=== PATIENT | male | born 1960 | race Hispanic/Latino ===

== ENCOUNTER 2016-06-15 10:07 | Outpatient (CLI) | payer BC ==
[2016-06-15] MEDS ORDERED: XYLOCAINE TOPICAL 2% TP ONE ×2 (10:52→14:48)
== END 2016-06-15 10:08 | disposition home or self-care (01) ==
LOC: WOUND 10:07
PROVIDERS: ATTEND Podiatrist
DX: I89.0 Lymphedema, not elsewhere classified (principal); L97.912 Non-pressure chronic ulcer of unspecified part of right lower leg with fat layer exposed; E66.9 Obesity, unspecified; L03.115 Cellulitis of right lower limb; M19.90 Unspecified osteoarthritis, unspecified site; I10 Essential (primary) hypertension; E66.01 Morbid (severe) obesity due to excess calories; E78.5 Hyperlipidemia, unspecified; Z87.891 Personal history of nicotine dependence

== ENCOUNTER 2016-06-18 11:27 | Outpatient (CLI) | payer BC | END 2016-06-18 11:28 | disposition home or self-care (01) | LOC: WOUND 11:27 | PROVIDERS: ATTEND Podiatrist | DX: T81.89XD Other complications of procedures, not elsewhere classified, subsequent encounter (principal); L97.912 Non-pressure chronic ulcer of unspecified part of right lower leg with fat layer exposed; E66.9 Obesity, unspecified; I10 Essential (primary) hypertension; I89.0 Lymphedema, not elsewhere classified; E78.5 Hyperlipidemia, unspecified; M19.90 Unspecified osteoarthritis, unspecified site; Z87.891 Personal history of nicotine dependence; Y83.8 Other surgical procedures as the cause of abnormal reaction of the patient, or of later complication, without mention of misadventure at the time of the procedure | CPT/HCPCS: 29581 ==

== ENCOUNTER 2016-06-22 09:09 | Outpatient (CLI) | payer BC ==
[2016-06-22] MEDS ORDERED: XYLOCAINE TOPICAL 2% TP ONE (09:13)
[2016-06-22] MEDS ORDERED: XYLOCAINE TOPICAL 4% TP ONE (13:56)
== END 2016-06-22 09:10 | disposition home or self-care (01) ==
LOC: WOUND 09:09
PROVIDERS: ATTEND Podiatrist
DX: T81.89XD Other complications of procedures, not elsewhere classified, subsequent encounter (principal); S81.801D Unspecified open wound, right lower leg, subsequent encounter; L03.115 Cellulitis of right lower limb; R60.0 Localized edema; E66.9 Obesity, unspecified; I10 Essential (primary) hypertension; I89.0 Lymphedema, not elsewhere classified; E78.2 Mixed hyperlipidemia; Z87.891 Personal history of nicotine dependence; Y83.8 Other surgical procedures as the cause of abnormal reaction of the patient, or of later complication, without mention of misadventure at the time of the procedure
CPT/HCPCS: 29581

== ENCOUNTER 2016-06-25 11:02 | Outpatient (CLI) | payer BC | END 2016-06-25 11:03 | disposition home or self-care (01) | LOC: WOUND 11:02 | PROVIDERS: ATTEND Podiatrist | DX: L97.811 Non-pressure chronic ulcer of other part of right lower leg limited to breakdown of skin (principal); R60.0 Localized edema; E66.9 Obesity, unspecified; L03.115 Cellulitis of right lower limb; M19.90 Unspecified osteoarthritis, unspecified site; I10 Essential (primary) hypertension; I89.0 Lymphedema, not elsewhere classified; E78.2 Mixed hyperlipidemia; Z87.891 Personal history of nicotine dependence | CPT/HCPCS: 29581 ==

== ENCOUNTER 2016-06-29 11:11 | Outpatient (CLI) | payer BC ==
[2016-06-29] MEDS ORDERED: XYLOCAINE TOPICAL 4% TP ONE (12:13)
== END 2016-06-29 11:12 | disposition home or self-care (01) ==
LOC: WOUND 11:11
PROVIDERS: ATTEND Podiatrist
DX: L97.912 Non-pressure chronic ulcer of unspecified part of right lower leg with fat layer exposed (principal); I89.0 Lymphedema, not elsewhere classified; E66.9 Obesity, unspecified; M19.90 Unspecified osteoarthritis, unspecified site; I10 Essential (primary) hypertension; E78.5 Hyperlipidemia, unspecified; Z87.891 Personal history of nicotine dependence

== ENCOUNTER 2016-07-02 11:47 | Outpatient (CLI) | payer BC | END 2016-07-02 11:48 | disposition home or self-care (01) | LOC: WOUND 11:47 | PROVIDERS: ATTEND Podiatrist | DX: T81.89XD Other complications of procedures, not elsewhere classified, subsequent encounter (principal); S91.001D Unspecified open wound, right ankle, subsequent encounter; L97.811 Non-pressure chronic ulcer of other part of right lower leg limited to breakdown of skin; R60.0 Localized edema; E66.9 Obesity, unspecified; L03.115 Cellulitis of right lower limb; M19.90 Unspecified osteoarthritis, unspecified site; I10 Essential (primary) hypertension; I89.0 Lymphedema, not elsewhere classified; E78.2 Mixed hyperlipidemia; Z87.891 Personal history of nicotine dependence; Y83.8 Other surgical procedures as the cause of abnormal reaction of the patient, or of later complication, without mention of misadventure at the time of the procedure | CPT/HCPCS: 29581; G0463; 99213 ==

== ENCOUNTER 2016-07-06 08:58 | Outpatient (CLI) | payer BC ==
[2016-07-06] MEDS ORDERED: XYLOCAINE TOPICAL 2% ONE (09:07)
[2016-07-06] MEDS ORDERED: XYLOCAINE TOPICAL 2% TP ONE (09:08)
== END 2016-07-06 08:59 | disposition home or self-care (01) ==
LOC: WOUND 08:58
PROVIDERS: ATTEND Podiatrist
DX: L97.812 Non-pressure chronic ulcer of other part of right lower leg with fat layer exposed (principal); E66.9 Obesity, unspecified; I10 Essential (primary) hypertension; I89.0 Lymphedema, not elsewhere classified; E78.5 Hyperlipidemia, unspecified; M19.90 Unspecified osteoarthritis, unspecified site; Z87.891 Personal history of nicotine dependence

== ENCOUNTER 2016-07-13 08:43 | Outpatient (CLI) | payer BC ==
[2016-07-13] MEDS ORDERED: XYLOCAINE TOPICAL 2% ONE (09:07)
[2016-07-13] MEDS ORDERED: XYLOCAINE TOPICAL 4% TP ONE (16:00)
[2016-07-13] MEDS ORDERED: XYLOCAINE TOPICAL 2% TP ONE (16:00)
== END 2016-07-13 08:44 | disposition home or self-care (01) ==
LOC: WOUND 08:43
PROVIDERS: ATTEND Podiatrist
DX: L97.912 Non-pressure chronic ulcer of unspecified part of right lower leg with fat layer exposed (principal); E66.9 Obesity, unspecified; I10 Essential (primary) hypertension; I89.0 Lymphedema, not elsewhere classified; E78.5 Hyperlipidemia, unspecified; H53.8 Other visual disturbances; M19.90 Unspecified osteoarthritis, unspecified site; Z87.891 Personal history of nicotine dependence

== ENCOUNTER 2016-07-27 09:04 | Outpatient (CLI) | payer BC ==
[2016-07-27] MEDS ORDERED: XYLOCAINE TOPICAL 2% ONE (09:10)
[2016-07-27] MEDS ORDERED: XYLOCAINE TOPICAL 2% TP ONE (09:20)
== END 2016-07-27 09:05 | disposition home or self-care (01) ==
LOC: WOUND 09:04
PROVIDERS: ATTEND Podiatrist
DX: I87.311 Chronic venous hypertension (idiopathic) with ulcer of right lower extremity (principal); L97.912 Non-pressure chronic ulcer of unspecified part of right lower leg with fat layer exposed; E66.9 Obesity, unspecified; M19.90 Unspecified osteoarthritis, unspecified site; I89.0 Lymphedema, not elsewhere classified; E78.5 Hyperlipidemia, unspecified; H53.8 Other visual disturbances; Z87.891 Personal history of nicotine dependence

== ENCOUNTER 2016-08-10 09:33 | Outpatient (CLI) | payer BC ==
[2016-08-10] MEDS ORDERED: XYLOCAINE TOPICAL 2% ONE (09:56)
[2016-08-10] MEDS ORDERED: XYLOCAINE TOPICAL 2% TP ONE (14:47)
== END 2016-08-10 09:34 | disposition home or self-care (01) ==
LOC: WOUND 09:33
PROVIDERS: ATTEND Podiatrist
DX: I87.311 Chronic venous hypertension (idiopathic) with ulcer of right lower extremity (principal); L97.812 Non-pressure chronic ulcer of other part of right lower leg with fat layer exposed; R60.9 Edema, unspecified; E66.01 Morbid (severe) obesity due to excess calories; M19.90 Unspecified osteoarthritis, unspecified site; I10 Essential (primary) hypertension; I89.0 Lymphedema, not elsewhere classified; E78.5 Hyperlipidemia, unspecified; Z87.891 Personal history of nicotine dependence

== ENCOUNTER 2016-08-24 09:05 | Outpatient (CLI) | payer BC ==
[2016-08-24] MEDS ORDERED: XYLOCAINE TOPICAL 2% TP ONE ×2 (10:00→13:08)
== END 2016-08-24 09:06 | disposition home or self-care (01) ==
LOC: WOUND 09:05
PROVIDERS: ATTEND Podiatrist
DX: I87.311 Chronic venous hypertension (idiopathic) with ulcer of right lower extremity (principal); L97.312 Non-pressure chronic ulcer of right ankle with fat layer exposed; E66.01 Morbid (severe) obesity due to excess calories; M19.90 Unspecified osteoarthritis, unspecified site; I89.0 Lymphedema, not elsewhere classified; E78.5 Hyperlipidemia, unspecified; Z87.891 Personal history of nicotine dependence

== ENCOUNTER 2016-10-08 12:16 | Outpatient (CLI) | payer BC, MEDICAID | END 2016-10-08 12:17 | disposition home or self-care (01) | LOC: WOUND 12:16 | PROVIDERS: ATTEND Podiatrist | DX: I87.311 Chronic venous hypertension (idiopathic) with ulcer of right lower extremity (principal); L97.812 Non-pressure chronic ulcer of other part of right lower leg with fat layer exposed; E66.9 Obesity, unspecified; M19.90 Unspecified osteoarthritis, unspecified site; I10 Essential (primary) hypertension; I89.0 Lymphedema, not elsewhere classified; E78.5 Hyperlipidemia, unspecified; H53.8 Other visual disturbances; Z68.44 Body mass index [BMI] 60.0-69.9, adult; Z87.891 Personal history of nicotine dependence | CPT/HCPCS: 99214; G0463 ==

== ENCOUNTER 2016-12-13 10:37 | Inpatient (IN) | payer MEDICAID ==
[2016-12-13 11:33] LABS: Hematocrit 37.9 % (35.5-45.6); Hemoglobin 12.5 gm/dl (11.8-15.2); Mean Corpuscular HGB Conc 33 % (32-34); Mean Corpuscular Hemoglobin 30 pg (28-32); Mean Corpuscular Volume 90 fl (84-94); Platelet Count 227 K/mm3 (140-440); Red Blood Count 4.21 M/mm3 (3.65-5.03); Red Cell Distribution Width 14.8 % (13.2-15.2)
[2016-12-13 11:38] LABS: White Blood Count 23.6 K/mm3 (4.5-11.0)
--- NOTE | 2016-12-13 11:52 | Emergency Department Report ---
Chief Complaint: Dyspnea/Respdistress Stated Complaint: CHEST PAIN/SOB Time Seen by Provider: 12/13/16 11:49 - HPI History of Present Illness: pt c/o being thirst all the time, productive cough, and chest pain with coughing. 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 Due to findings the following was ordered: ED Medical Decision Making - Lab Data Result diagrams: 12/13/16 11:14 ED Disposition for MSE Condition: Stable
[2016-12-13 12:21] LABS: Basophils % (Manual) 0 % (0.0-1.8); Blastocytes % (Manual) 0 %; Diff Status Complete; Eosinophils % (Manual) 0 % (0.0-4.3); Platelet Estimate Consistent w Auto; RBC Morphology Normal
[2016-12-13 12:30] LABS: Anion Gap 24 mmol/L; BUN/Creatinine Ratio 14.54; Blood Urea Nitrogen 16 mg/dL (9-20); Calcium 8.7 mg/dL (8.4-10.2); Carbon Dioxide 19 mmol/L (22-30); Chloride 94.7 mmol/L (98-107); Glucose 104 mg/dL (75-100); Potassium 3.6 mmol/L (3.6-5.0); Sodium 134 mmol/L (137-145)
--- NOTE | 2016-12-13 12:33 | XRay Report ---
CHEST 2 VIEWS INDICATION: Shortness of breath. COMPARISON: 05/02/2016 FINDINGS: PA and lateral chest radiographs demonstrate new 7-8 cm left lower lung pneumonia, partly obscuring the left heart border. Clear remainder lungs. Normal cardiomediastinal silhouette. No large pleural effusions or CHF. Mild bony degenerative changes. CONCLUSION: New left lower lung pneumonia, as described. Followup to complete resolution after adequate conservative treatment. Thank you for the opportunity to participate in this patient's care.
[2016-12-13] MEDS ORDERED: DUONEB *Not for PRN Use IH ONE ×2 (18:23→19:28)
[2016-12-13] MEDS ORDERED: LEVAQUIN 500MG/100ML 500 MG/100 ML BAG IV ONE (18:23)
[2016-12-13] MEDS ORDERED: BABY ASPIRIN PO ONE (18:28)
--- NOTE | 2016-12-13 18:28 | Emergency Department Report ---
HPI - General Chief Complaint: Dyspnea/Respdistress Time Seen by Provider: 12/13/16 17:55 - HPI HPI: The patient is a 56-year-old male with a reported history of congestive heart failure whom presents for evaluation of dyspnea. The patient reports 1 day of progressive dyspnea, constant since onset, severe, exacerbated with exertion or lying flat, improved with sitting up and rest. He also reports associated productive cough of yellow and green sputum also for the past one day, and bilateral lower leg swelling. The patient denies trauma to the chest, hemoptysis, syncope, chest pain, unilateral leg swelling, recent immobilization , history of DVT or PE, recent cancer, history of familial coagulation disorder. ED Past Medical Hx - Past Medical History Previous Medical History?: Yes Hx Hypertension: Yes Hx Congestive Heart Failure: No Hx Diabetes: No Hx Deep Vein Thrombosis: (Unknown) Hx Arthritis: Yes Hx Asthma: No Hx COPD: No Hx HIV: No - Surgical History Past Surgical History?: Yes Hx Pacemaker: No Hx Internal Defibrillator: No Additional Surgical History: R knee surgery 1977, Right leg surgery with wound vac placed 05-29-2016. bladder surgery 1959 - Social History Smoking Status: Former Smoker Substance Use Type: Prescribed - Medications Home Medications: Home Medications Medication Instructions Recorded Confirmed Last Taken Type AtorvaSTATin [Lipitor] 20 mg PO DAILY 05/02/16 05/02/16 Unknown History Valsartan/Hydrochlorothiazide 1 each PO DAILY 05/02/16 05/02/16 Unknown History [Valsartan-Hctz 160-12.5 mg Tab] Amoxicillin/K Clav Tab [Augmentin 1 tab PO Q12HR #14 tab 05/05/16 Unknown Rx 875 mg] ED Review of Systems ROS: Stated complaint: CHEST PAIN/SOB Other details as noted in HPI Constitutional: denies: fever ENT: denies: throat or neck pain Respiratory: reports cough, shortness of breath Cardiovascular: denies: chest pain Endocrine: denies unexplained weight loss or gain Gastrointestinal: denies: abdominal pain, nausea Genitourinary: denies: dysuria Musculoskeletal: denies: leg swelling Skin: denies: rash Neurological: denies: headache Hematological/Lymphatic: denies: easy bleeding or easy bruising Psych: denies sadness or hopelessness Physical Exam - Physical Exam Vital Signs: Vital Signs 12/13/16 10:58 Temperature 99.5 F Pulse Rate 118 H Respiratory 22 Rate Blood Pressure 132/61 O2 Sat by Pulse 95 Oximetry Physical Exam: General: well-nourished, well-developed, patient morbidly obese Head: Normocephalic, atraumatic Eyes: normal sclera ENT: Mucous membranes are pink and moist Neck: trachea midline, neck supple, No neck stiffness, no cervical adenopathy Respiratory: Patient tachypnea, with positive costal retractions, mild respiratory distress, with left lower lobe diminished breath sounds and rhonchi present, wheezing present throughout lung is bilaterally Cardio: S1 and S2 present, no murmurs, rubs, gallops, capillary refill is brisk Abdomen: Normoactive bowel sounds, soft abdomen, no rigidity, no guarding or rebound tenderness Musc: No pitting edema Skin: No rash Neuro: no facial drooping, normal speech Psych: Normal affect ED Course Vital Signs 12/13/16 10:58 Temperature 99.5 F Pulse Rate 118 H Respiratory 22 Rate Blood Pressure 132/61 O2 Sat by Pulse 95 Oximetry ED Medical Decision Making - Lab Data Result diagrams: 12/13/16 11:14 12/13/16 11:14 - Medical Decision Making The patient was seen and examined by myself. The patient is placed on a diagnostic cardiac sonographer and continuous pulse ox. On initial evaluation, the patient was found to be in mild respiratory distress, with elevated temperature 100.9. The patient is given by mouth Tylenol for his fever. Evaluation orders were placed. The patient given a DuoNeb breathing treatment for his dyspnea and wheezing. Lab results revealed leukocytosis, WBC 23, and elevated BNP of 1000. X-ray of the chest dizziness large left lower lobe pneumonia. The patient is administered Zosyn and Levaquin for treatment of pneumonia. As the patient is morbidly obese with tachypnea and persistent tachycardia, the patient may admitted for continued breathing treatments, IV antibiotics, and close cardiopulmonary monitoring. The on-call hospitalist service was contacted. They agreed to admit the patient for further treatment and close monitoring. The ED admit order was placed. The patient was admitted in guarded condition. Critical care attestation.: If time is entered above; I have spent that time in minutes in the direct care of this critically ill patient, excluding procedure time. ED Disposition Clinical Impression: Morbid obesity Left lower lobe pneumonia Qualifiers: Pneumonia type: due to unspecified organism Qualified Code(s): J18.1 - Lobar pneumonia, unspecified organism Sepsis Qualifiers: Sepsis type: sepsis due to unspecified organism Qualified Code(s): A41.9 - Sepsis, unspecified organism Disposition: OP ADMIT IP TO THIS HOSP Is pt being admited?: Yes Does the pt Need Aspirin: Yes Condition: Stable Instructions: Bacterial Pneumonia (ED) Referrals: PRIMARY CARE, [Primary Care Provider] - 3-5 Days Time of Disposition: 18:26
--- NOTE | 2016-12-13 18:32 | Admit Criteria Form ---
Admission Criteria Documentation: PULMONARY DISEASE GRG Clinical Indications for Admission to Inpatient Care ( Place 'X' for any and all applicable criteria): Hospital admission is needed for appropriate care of the patient because of 1 or more of the following(1)(2): [ ]I. Impending or actual respiratory arrest. See Respiratory Failure GRG guideline for severe respiratory disease and long-term mechanical ventilation patients. (3)(4) (5) [ ]II. Severe airflow or ventilation abnormalities (not responsive to emergency and observation care treatment as appropriate) as indicated by 1 or more of the following (6)(7)(8)(9) : [ ]a) PCO2 greater than 42 mm Hg (5.6 kPa) and pH less than 7.35 (new) [ ]b) Documented PCO2 increased more than 5 mm Hg (0.7 kPa) from disease baseline [ ]c) Airflow measurements[A] less than 60% of previous best or predicted (eg, peak expiratory flow rate less than 300 L/min) despite intensive emergent treatment(B) [ ]d) Required respiratory treatments that are performable only in acute inpatient setting [ ]III. Severe respiratory findings (not responsive to emergency and observation care treatment as appropriate) including 1 or more of the following(6)(9)(10): [ ]a) Respiratory distress as indicated by ALL of the following(6)(11): [ ]i) Patient with 1 or more of the following: [ ]1) Dyspnea (difficulty breathing) [ ]2) Tachypnea [ ]3) Abnormal breathing pattern (eg, chest retractions) [ ]4) Other evidence of difficulty breathing [ ]ii) Evidence of respiratory compromise indicated by 1 or more of the following: [ ]1) Hypoxemia [ ]2) Altered mental status [ ]3) Other evidence of respiratory compromise (eg, pulmonary edema on chest x-ray) [ ]b) Stridor [ ]c) Gross hemoptysis(12) [ ]d) Acute cyanosis [ ]IV. Chronic lung disease with severe deterioration (not responsive to emergency and observation care treatment as appropriate) as indicated by 1 or more of the following(7) (13): [ ]a) SaO2 5% below baseline in patient with chronic hypoxemia [ ]b) New requirement for supplemental oxygen to keep SaO2 at baseline or acceptable level [ ]c) Required supplemental oxygen performable only in acute inpatient setting [ ]d) Severe airflow or ventilation abnormalities [ ]e) Previouslymobile patient unable to walk between rooms [ ]f) Inability to eat or sleep due to dyspnea [ ]g) Altered mental status that is severe or persistent [ ]V. Empyema or lung abscess(14)(15) [ ]Vl. Severe atelectasis or lung collapse(16)(17) [ ]Marisa. Tuberculosis requiring inpatient treatment as indicated by 1 or more of the following(18)(19)(20)(21): [ ]a) Diagnosis suspected (eg, symptomatic patient from endemic area or in high-risk population, with abnormal chest imaging) and cannot be ruled out within observation care timeframe (ie, sputum analysis, nucleic acid amplification techniques not rapidly available or not diagnostic) [ ]b) Severely symptomatic patient (eg, Hypoxemia, Hemodynamic instability, Tachypnea) [ ]c) Jkpnm-[id number]-[id number] infection suspected in newly diagnosed patient (eg, treatment regimen may require near-term adjustment) [ ]d) Newly diagnosed patient at high-risk of short-term deterioration (eg, HIV positive, frail, immunocompromised, chronic lung disease) [ ]e) High infectivity suspected (eg, laryngeal disease, cavitary pulmonary lesions, ongoing positivity of sputum) and 1 or more of the following: [ ]i) Unexposed household contacts at high risk (eg, immunocompromised, elderly, infants, chronic lung disease) [ ]ii) Patient unable or unwilling to avoid exposing others (eg, significant psychiatric disease, substance abuse, developmental disability) [ ]f) Complication of tuberculosis requiring inpatient treatment (eg , constrictive pericarditis, tubercular meningitis) [ ]g) Hospitalization mandated by public health authority (eg, patient continually noncompliant with directly observed therapy) [ ]VIII. High-risk pulmonary infection as indicated by 1 or more of the following(22)(23)(24)(25): [ ]a) Temperature less than 95 degrees F (35 degrees C) or greater than 103.1 degrees F (39.5 degrees C) [ ]b) Hemodynamic instability [ ]c) Immunocompromised patient (eg, AIDS, post transplant, neutropenic)(26)(27) [ ]d) History of severe COPD(28) [ ]e) History of severely symptomatic congestive heart failure(29) [ ]f) Other high-risk comorbidity (eg, poorly controlled diabetes, cirrhosis, chronic renal insufficiency) [ ]g) Hypoxemia [ ]h) severe stridor (30) [ ]i) Outpatient, observation, or recovery facility therapy has failed, is not appropriate, or is not feasible. [ ]IX. Complications of tracheostomy that remains after emergency or observation level care(31)(32)(33)(34) [ ]X. Respiratory complications of organ transplant (eg, rejection, respiratory failure, respiratory infection)(27) [ ]XI. Severe pulmonary arterial hypertension or pulmonary vascular disease requiring inpatient care indicated by 1 or more of the following(35)(36)(37)(38): [ ]a) Initiation or change of vasodilators (IV, subcutaneous, or inhaled) or other vasoactive medications needed [ ]b) IV anticoagulation needed (eg, immediate anticoagulation necessary, alternatives not appropriate) [ ]c) Arterial or pulmonary artery catheter monitoring needed due to infusion or other treatment [ ]XII. Cystic fibrosis requiring inpatient care as indicated by 1 or more of the following(39)(40): [ ]a) Severe exacerbation that does not respond to intensified home therapy(41) [ ]b) Severe exacerbation with patient unable to perform prescribed treatments at home [ ]c) Pneumonia [ ]d) Pneumothorax(42) [ ]e) Atelectasis [ ]f) Hemoptysis(43) [ ]XIII. Bronchiectasis requiring inpatient care as indicated by 1 or more of the following(44)(45): [ ]a) Respiratory distress [ ]b) Severe exacerbation and outpatient or observation care therapy has failed, is not appropriate, or is not feasible. [ ]XIV. Sarcoidosis requiring inpatient care as indicated by 1 or more of the following(46)(47)(48): [ ]a) Respiratory distress [ ]b) Cardiac involvement with arrhythmia(49) [ ]c) Outpatient or observation care therapy has failed, is not appropriate, or is not feasible. [ ]XV. Intestitial lung disease requiring inpatient care as indicated by 1 or more of the following(50)(51): [ ]a) Respiratory distress [ ]b) Severe exacerbation and outpatient or observation care therapy has failed, is not appropriate, or is not feasible [ ]XVI. Allergic pneumonitis requiring inpatient care as indicated by 1 or more of the following(52): [ ]a) Respiratory distress [ ]b) Acute eosinophilic pneumonia [ ]c) Churg Rk with cardiac involvement [ ]d) Outpatient or observation care therapy has failed, is not appropriate, or is not feasible [ ]XVIl. Severe right heart failure requiring inpatient care as indicated by 1 or more of the following(35)(53)(54): [ ]a) Respiratory distress [ ]b) Debilitating anasarca that remains after emergency or observation level care (eg, tissue [ ]c) breakdown with severe infection, inability to void due to edema) [C](41)(42)(43)(44) [ ]d) Hemodynamic instability [ ]e) Syncope [ ]f) Angina that requires inpatient care (eg, not treatable in emergency or observation level of care) [ ]g) Increasing organ failure (eg, liver congestion with significant and worsening or new elevation of transaminases) [ ]XVIll. Injury requiring inpatient care (medical) as indicated by 1 or more of the following(59)(60)(61) [ ]a) Significant inhalation injury (eg, smoke inhalation, other toxic inhalation)(62)(63)(64) [ ]b) Airway obstruction that remains or is unstable after emergency or observation level care(65)(66) [ ]c) Severe pain requiring acute inpatient management [ ]d) Lung contusion(67) [ ]e) Flail chest(68) [ ]f) Bronchial tree injury [ ]g) Air or fat emboli [ ]h) Other injury not treatable in emergency or observation level care (eg, hemothorax)(55) [ ]XlX. Pulmonary hemorrhage or significant hemoptysis(12)(43)(69) [ ]XXl. Complications of transplanted lung indicated by 1 or more of the following(70)(71) [ ]a) Acute graft rejection requiring inpatient management (eg, intravenous immunosuppression)(72)(73)(74) [ ]b) Failure of transplant lung as indicated by 1 or more of the following(75)(76): [ ]i) Anastomotic leak [ ]ii) Airway ischemia or necrosis [ ]iii) Airway fistula [ ]iv) Obstructing granulation tissue requiring intervention [ ]v) Bronchial stenosis or stricture requiring intervention [ ]vi) Tracheobronchomalacia requiring intervention [ ]vii) Severe airflow or ventilation abnormalities [ ]viii) Severe respiratory findings [ ]c) Infection requiring inpatient management (eg, Hemodynamic instability, need for intravenous antimicrobial treatment)(77)(78)(79)(80)(81)(82 [ ]d) Other complication of transplanted lung (eg, obliterative bronchiolitis, plastic bronchitis, thrombotic microangiopathy, constrictive pericarditis) requiring inpatient management(83)(84)(85)(86)(87) [ ]XXll. Inpatient palliative care needed.[D](88)(89)(90)(91) [X ]XXlll. Pulmonary Disease condition, symptom, or finding for which emergency and observation care have failed or are not considered appropriate. The original [facility] content created by [employer] has been revised. The portions of the content which have been revised are identified through the use of italic text or in bold, and [facility] has neither reviewed nor approved the modified material. All other unmodified content is copyright [facility]. Please see references footnoted in the original [facility] edition 2017 Admission Criteria Met: Yes
[2016-12-13] MEDS ORDERED: TYLENOL PO ONE (19:34)
[2016-12-13] MEDS ORDERED: NACL 0.9% 250ML 250 ML IV ONE (19:42)
--- NOTE | 2016-12-13 20:05 | History and Physical Report ---
History of Present Illness Date of examination: 12/13/16 Chief complaint: Shortness of breath and pleuritic chest pain History of present illness: 56 year old male with medical history significant for morbid obesity, hypertension, hyperlipidemia presented to the emergency department complaining of left-sided pleuritic chest pain and shortness of breath that started yesterday. Patient said pain is on the left lower anterior chest, sharp, worsened with deep inspiration, with no radiation, no aggravating factor. Patient stated he had which is productive of greenish to reddish sputum that started yesterday associated with fever but no chills. REVIEW OF SYSTEMS: GENERAL: no weight change, no fatigue, no fever HEAD: no head ache EYES: no blurry vision, no acute visual loss EARS: no hearing loss, no discharge, no earache NOSE: no stuffiness, no sneezing, no discharge MOUTH, THROAT AND NECK: no bleeding gums, no sore throat, no swollen neck CARDIAC: no palpitations, no dyspnea on exertion, no orthopnea, no PND, no edema , + chest pain RESPIRATORY: + shortness of breath, + wheeze, + cough, greenish sputum, no hemoptysis, no asthma GI: no decreased appetite, no nausea, no vomiting, no dysphagia, no diarrhea, no constipation, no abdominal pain URINARY: no change in frequency, no urgency, no polyuria, no hematuria, no incontinence MUSCULOSKELETAL: no muscle weakness, no pain, no joint stiffness NEUROLOGIC: no loss of sensation/numbness, no tingling, no tremors, no weakness/ paralysis HEMATOLOGIC: no anemia, no easy bruising SKIN: no rashes ENDOCRINE: no heat/cold intolerance, no polyuria, no polydipsia, no thyroid problems, no diabetes PSYCHIATRIC: no anxiety, no depression, no suicidal ideations Past History Past Medical History: hypertension, hyperlipidemia, other (morbid obesity) Past Surgical History: Other (right knee in the surgery, on the right leg) Social history: full code. denies: smoking, alcohol abuse, prescription drug abuse, IV drug use Family history: no significant family history Medications and Allergies Allergies Allergy/AdvReac Type Severity Reaction Status Date / Time morphine AdvReac Vomiting Verified 02/16/14 04:31 Home Medications Medication Instructions Recorded Confirmed Last Taken Type AtorvaSTATin [Lipitor] 20 mg PO DAILY 12/18/16 12/18/16 Unknown History Valsartan/Hydrochlorothiazide 1 each PO DAILY 05/02/16 05/02/16 Unknown History [Valsartan-Hctz 160-12.5 mg Tab] Amoxicillin/K Clav Tab [Augmentin 1 tab PO Q12HR #14 tab 05/05/16 Unknown Rx 875 mg] Active Meds: Active Medications Albuterol/Ipratropium (Duoneb *Not For Prn Use*) 1 ampul IH QIDRT ANTHONY Atorvastatin Calcium (Lipitor) 20 mg PO DAILY ANTHONY Hydrochlorothiazide (Hctz) 12.5 mg PO QDAY ANTHONY Levofloxacin/Dextrose (Levaquin 750mg/150ml) 750 mg in 150 mls @ 100 mls/hr IV Q24HR ANTHONY PRN Reason: Protocol Piperacillin Sod/Tazobactam Sod (Zosyn/Ns 4.5gm/100ml) 4.5 gm in 100 mls @ 200 mls/hr IV Q8HR ANTHONY PRN Reason: Protocol Valsartan (Diovan) 160 mg PO DAILY ANTHONY Exam - Physical Exam Narrative exam: In mild cardiopulmonary distress. The patient is a morbidly obese. Vital signs as documented. Head exam is unremarkable. No scleral icterus . Neck is without jugular venous distension, thyromegaly, or carotid bruits. Lungs wheezing all over the chest, tachypneic. Cardiac exam reveals regular rate and Rhythm. First and second heart sounds normal. No murmurs, rubs or gallops. Abdominal exam reveals a morbidly obese abdomen umbilical hernia. Extremities are nonedematous and both femoral and pedal pulses are normal. PLANE RUNNER: Alert and oriented 3. No focal weakness. - Constitutional Vitals: Temp Pulse Resp BP Pulse Ox 100.9 F H 109 H 24 123/60 94 12/13/16 19:01 12/13/16 19:01 12/13/16 19:01 12/13/16 19:01 12/13/16 19:03 Results - Labs CBC & Chem 7: 12/13/16 11:14 12/13/16 11:14 Labs: Laboratory Last Values WBC 23.6 K/mm3 (4.5-11.0) H 12/13/16 11:14 RBC 4.21 M/mm3 (3.65-5.03) 12/13/16 11:14 Hgb 12.5 gm/dl (11.8-15.2) 12/13/16 11:14 Hct 37.9 % (35.5-45.6) 12/13/16 11:14 MCV 90 fl (84-94) 12/13/16 11:14 MCH 30 pg (28-32) 12/13/16 11:14 MCHC 33 % (32-34) 12/13/16 11:14 RDW 14.8 % (13.2-15.2) 12/13/16 11:14 Plt Count 227 K/mm3 (140-440) 12/13/16 11:14 Add Manual Diff Complete 12/13/16 11:14 Total Counted 100 12/13/16 11:14 Seg Neuts % (Manual) 95.0 % (40.0-70.0) H 12/13/16 11:14 Band Neutrophils % 1.0 % 12/13/16 11:14 Lymphocytes % (Manual) 0 % (13.4-35.0) L 12/13/16 11:14 Reactive Lymphs % (Man) 1.0 % 12/13/16 11:14 Monocytes % (Manual) 3.0 % (0.0-7.3) 12/13/16 11:14 Eosinophils % (Manual) 0 % (0.0-4.3) 12/13/16 11:14 Basophils % (Manual) 0 % (0.0-1.8) 12/13/16 11:14 Metamyelocytes % 0 % 12/13/16 11:14 Myelocytes % 0 % 12/13/16 11:14 Promyelocytes % 0 % 12/13/16 11:14 Blast Cells % 0 % 12/13/16 11:14 Nucleated RBC % Not Reportable 12/13/16 11:14 Seg Neutrophils # Man 22.4 K/mm3 (1.8-7.7) H 12/13/16 11:14 Band Neutrophils # 0.2 K/mm3 12/13/16 11:14 Lymphocytes # (Manual) 0.0 K/mm3 (1.2-5.4) L 12/13/16 11:14 Abs React Lymphs (Man) 0.2 K/mm3 12/13/16 11:14 Monocytes # (Manual) 0.7 K/mm3 (0.0-0.8) 12/13/16 11:14 Eosinophils # (Manual) 0.0 K/mm3 (0.0-0.4) 12/13/16 11:14 Basophils # (Manual) 0.0 K/mm3 (0.0-0.1) 12/13/16 11:14 Metamyelocytes # 0.0 K/mm3 12/13/16 11:14 Myelocytes # 0.0 K/mm3 12/13/16 11:14 Promyelocytes # 0.0 K/mm3 12/13/16 11:14 Blast Cells # 0.0 K/mm3 12/13/16 11:14 WBC Morphology Not Reportable 12/13/16 11:14 Hypersegmented Neuts Not Reportable 12/13/16 11:14 Hyposegmented Neuts Not Reportable 12/13/16 11:14 Hypogranular Neuts Not Reportable 12/13/16 11:14 Smudge Cells Not Reportable 12/13/16 11:14 Toxic Granulation Not Reportable 12/13/16 11:14 Toxic Vacuolation Not Reportable 12/13/16 11:14 Dohle Bodies Not Reportable 12/13/16 11:14 Pelger-Huet Anomaly Not Reportable 12/13/16 11:14 Suzie Rods Not Reportable 12/13/16 11:14 Platelet Estimate Consistent w auto 12/13/16 11:14 Clumped Platelets Not Reportable 12/13/16 11:14 Plt Clumps, EDTA Not Reportable 12/13/16 11:14 Large Platelets Not Reportable 12/13/16 11:14 Giant Platelets Not Reportable 12/13/16 11:14 Platelet Satelliting Not Reportable 12/13/16 11:14 Plt Morphology Comment Not Reportable 12/13/16 11:14 RBC Morphology Normal 12/13/16 11:14 Dimorphic RBCs Not Reportable 12/13/16 11:14 Polychromasia Not Reportable 12/13/16 11:14 Hypochromasia Not Reportable 12/13/16 11:14 Poikilocytosis Not Reportable 12/13/16 11:14 Anisocytosis Not Reportable 12/13/16 11:14 Microcytosis Not Reportable 12/13/16 11:14 Macrocytosis Not Reportable 12/13/16 11:14 Spherocytes Not Reportable 12/13/16 11:14 Pappenheimer Bodies Not Reportable 12/13/16 11:14 Sickle Cells Not Reportable 12/13/16 11:14 Target Cells Not Reportable 12/13/16 11:14 Tear Drop Cells Not Reportable 12/13/16 11:14 Ovalocytes Not Reportable 12/13/16 11:14 Helmet Cells Not Reportable 12/13/16 11:14 [place] Bodies Not Reportable 12/13/16 11:14 [place] Rings Not Reportable 12/13/16 11:14 Roberto Cells Not Reportable 12/13/16 11:14 Bite Cells Not Reportable 12/13/16 11:14 Crenated Cell Not Reportable 12/13/16 11:14 Elliptocytes Not Reportable 12/13/16 11:14 Acanthocytes (Spur) Not Reportable 12/13/16 11:14 Rouleaux Not Reportable 12/13/16 11:14 Hemoglobin C Crystals Not Reportable 12/13/16 11:14 Schistocytes Not Reportable 12/13/16 11:14 Malaria parasites Not Reportable 12/13/16 11:14 Epifanio Bodies Not Reportable 12/13/16 11:14 Hem Pathologist Commnt No 12/13/16 11:14 Sodium 134 mmol/L (137-145) L 12/13/16 11:14 Potassium 3.6 mmol/L (3.6-5.0) 12/13/16 11:14 Chloride 94.7 mmol/L (98-107) L 12/13/16 11:14 Carbon Dioxide 19 mmol/L (22-30) L 12/13/16 11:14 Anion Gap 24 mmol/L 12/13/16 11:14 BUN 16 mg/dL (9-20) 12/13/16 11:14 Creatinine 1.1 mg/dL (0.8-1.5) 12/13/16 11:14 Estimated GFR > 60 ml/min 12/13/16 11:14 BUN/Creatinine Ratio 14.54 % 12/13/16 11:14 Glucose 104 mg/dL (75-100) H 12/13/16 11:14 Lactic Acid 1.80 mmol/L (0.7-2.0) 12/13/16 12:16 Calcium 8.7 mg/dL (8.4-10.2) 12/13/16 11:14 Troponin T < 0.010 ng/mL (0.00-0.029) 12/13/16 11:14 NT-Pro-B Natriuret Pep 1008 pg/mL (0-900) H 12/13/16 12:16 Assessment and Plan Assessment and plan: Sepsis Left lower lobe pneumonia Sleep apnea Morbid obesity Hypertension Hyperlipidemia - Patient is dictated according to sepsis protocol -Breathing treatment, DuoNeb, oxygen support -Continue appropriate home medications - Continue CPAP DVT prophylaxis - Subcutaneous Heparin Disposition - Telemetry floor Advance Directives: Yes VTE prophylaxis?: Chemical Plan of care discussed with patient/family: Yes
[2016-12-13 21:24] LABS: ISTAT Base Excess -3; ISTAT DEVICE 0; ISTAT HCO3 21.4; ISTAT PCO2 30.7 (35-45); ISTAT PH 7.451 (7.35-7.45); ISTAT PO2 72 (80-105); ISTAT SO2 95; ISTAT TCO2 22
[2016-12-13] MEDS: DUONEB *Not for PRN Use IH SCH (22:41)
[2016-12-13] MEDS ORDERED: LEVAQUIN 750MG/150ML 0 MG/0 ML BAG IV ONE (23:29)
[2016-12-13] MEDS: LOVENOX SUB-Q SCH (23:30)
[2016-12-13] MEDS: ZOSYN/NS 4.5GM/100ML 4.5 GM/100 ML VIAL IV SCH (23:35)
[2016-12-14] MEDS ORDERED: ZOSYN/NS 3.375GM/50ML 3.375 GM/50 ML BAG IV SCH
[2016-12-14] MEDS: ZOSYN/NS 4.5GM/100ML 4.5 GM/100 ML VIAL IV SCH ×3 (06:49→22:30)
[2016-12-14 09:11] LABS: Basophils % (Auto) 0.2 % (0.0-1.8); Eosinophils % (Auto) 0.4 % (0.0-4.3); Hematocrit 33.2 % (35.5-45.6); Hemoglobin 10.9 gm/dl (11.8-15.2); Mean Corpuscular HGB Conc 33 % (32-34); Mean Corpuscular Hemoglobin 30 pg (28-32); Mean Corpuscular Volume 90 fl (84-94); Platelet Count 181 K/mm3 (140-440); Red Cell Distribution Width 14.1 % (13.2-15.2); White Blood Count 15.1 K/mm3 (4.5-11.0)
[2016-12-14 09:27] LABS: BUN/Creatinine Ratio 17.77; Blood Urea Nitrogen 16 mg/dL (9-20); Calcium 8.2 mg/dL (8.4-10.2); Carbon Dioxide 23 mmol/L (22-30); Glucose 127 mg/dL (75-100)
[2016-12-14 09:28] LABS: Anion Gap 17 mmol/L; Chloride 98.9 mmol/L (98-107); Potassium 3.3 mmol/L (3.6-5.0); Sodium 136 mmol/L (137-145)
[2016-12-14] MEDS: DUONEB *Not for PRN Use IH SCH ×4 (10:21→20:31)
[2016-12-14] MEDS: LEVAQUIN 750MG/150ML 750 MG/150 ML BAG IV SCH (10:32)
[2016-12-14] MEDS: DIOVAN PO SCH (10:52)
[2016-12-14] MEDS: HCTZ PO SCH (10:55)
[2016-12-14] MEDS ORDERED: K-DUR PO ONE (17:32)
--- NOTE | 2016-12-14 17:33 | Progress Note ---
Assessment and Plan Assessment and plan: Sepsis - Resolving, WBC is trending down, no fever Left lower lobe pneumonia Sleep apnea Morbid obesity Hypertension Hyperlipidemia Hypokalemia; repleted - Patient is being treated according to sepsis protocol with IV Levaquin and Zosyn -Breathing treatment, DuoNeb, oxygen support -Continue appropriate home medications -Continue CPAP DVT prophylaxis - Subcutaneous Heparin Disposition - Continue inpatient care History Interval history: Patient was seen and evaluated this morning, patient states his breathing is getting better, no fever overnight. She is to have left lower pleuritic chest pain. Hospitalist Physical - Physical exam Narrative exam: Not in cardiopulmonary distress. The patient is a morbidly obese. Vital signs as documented. Head exam is unremarkable. No scleral icterus . Neck is without jugular venous distension, thyromegaly, or carotid bruits. Lungs rales on the left lower chest. Cardiac exam reveals regular rate and Rhythm. First and second heart sounds normal. No murmurs, rubs or gallops. Abdominal exam reveals a morbidly obese abdomen umbilical hernia. Extremities are nonedematous and both femoral and pedal pulses are normal. ORACLE ANALYST: Alert and oriented 3. No focal weakness. - Constitutional Vitals: Temp Pulse Resp BP Pulse Ox 99.4 F 79 20 131/66 94 12/14/16 16:01 12/14/16 16:01 12/14/16 16:01 12/14/16 16:01 12/14/16 16:01 Results - Labs CBC & Chem 7: 12/14/16 08:55 12/14/16 08:55 Labs: Laboratory Last Values WBC 15.1 K/mm3 (4.5-11.0) H 12/14/16 08:55 RBC 3.70 M/mm3 (3.65-5.03) 12/14/16 08:55 Hgb 10.9 gm/dl (11.8-15.2) L 12/14/16 08:55 Hct 33.2 % (35.5-45.6) L 12/14/16 08:55 MCV 90 fl (84-94) 12/14/16 08:55 MCH 30 pg (28-32) 12/14/16 08:55 MCHC 33 % (32-34) 12/14/16 08:55 RDW 14.1 % (13.2-15.2) 12/14/16 08:55 Plt Count 181 K/mm3 (140-440) 12/14/16 08:55 Lymph % (Auto) 5.9 % (13.4-35.0) L 12/14/16 08:55 [facility] % (Auto) 6.3 % (0.0-7.3) 12/14/16 08:55 Eos % (Auto) 0.4 % (0.0-4.3) 12/14/16 08:55 Baso % (Auto) 0.2 % (0.0-1.8) 12/14/16 08:55 Lymph # 0.9 K/mm3 (1.2-5.4) L 12/14/16 08:55 [facility] # 1.0 K/mm3 (0.0-0.8) H 12/14/16 08:55 Eos # 0.1 K/mm3 (0.0-0.4) 12/14/16 08:55 Baso # 0.0 K/mm3 (0.0-0.1) 12/14/16 08:55 Add Manual Diff Complete 12/13/16 11:14 Total Counted 100 12/13/16 11:14 Seg Neutrophils % 87.2 % (40.0-70.0) H 12/14/16 08:55 Seg Neuts % (Manual) 95.0 % (40.0-70.0) H 12/13/16 11:14 Band Neutrophils % 1.0 % 12/13/16 11:14 Lymphocytes % (Manual) 0 % (13.4-35.0) L 12/13/16 11:14 Reactive Lymphs % (Man) 1.0 % 12/13/16 11:14 Monocytes % (Manual) 3.0 % (0.0-7.3) 12/13/16 11:14 Eosinophils % (Manual) 0 % (0.0-4.3) 12/13/16 11:14 Basophils % (Manual) 0 % (0.0-1.8) 12/13/16 11:14 Metamyelocytes % 0 % 12/13/16 11:14 Myelocytes % 0 % 12/13/16 11:14 Promyelocytes % 0 % 12/13/16 11:14 Blast Cells % 0 % 12/13/16 11:14 Nucleated RBC % Not Reportable 12/13/16 11:14 Seg Neutrophils # 13.2 K/mm3 (1.8-7.7) H 12/14/16 08:55 Seg Neutrophils # Man 22.4 K/mm3 (1.8-7.7) H 12/13/16 11:14 Band Neutrophils # 0.2 K/mm3 12/13/16 11:14 Lymphocytes # (Manual) 0.0 K/mm3 (1.2-5.4) L 12/13/16 11:14 Abs React Lymphs (Man) 0.2 K/mm3 12/13/16 11:14 Monocytes # (Manual) 0.7 K/mm3 (0.0-0.8) 12/13/16 11:14 Eosinophils # (Manual) 0.0 K/mm3 (0.0-0.4) 12/13/16 11:14 Basophils # (Manual) 0.0 K/mm3 (0.0-0.1) 12/13/16 11:14 Metamyelocytes # 0.0 K/mm3 12/13/16 11:14 Myelocytes # 0.0 K/mm3 12/13/16 11:14 Promyelocytes # 0.0 K/mm3 12/13/16 11:14 Blast Cells # 0.0 K/mm3 12/13/16 11:14 WBC Morphology Not Reportable 12/13/16 11:14 Hypersegmented Neuts Not Reportable 12/13/16 11:14 Hyposegmented Neuts Not Reportable 12/13/16 11:14 Hypogranular Neuts Not Reportable 12/13/16 11:14 Smudge Cells Not Reportable 12/13/16 11:14 Toxic Granulation Not Reportable 12/13/16 11:14 Toxic Vacuolation Not Reportable 12/13/16 11:14 Dohle Bodies Not Reportable 12/13/16 11:14 Pelger-Huet Anomaly Not Reportable 12/13/16 11:14 Suzie Rods Not Reportable 12/13/16 11:14 Platelet Estimate Consistent w auto 12/13/16 11:14 Clumped Platelets Not Reportable 12/13/16 11:14 Plt Clumps, EDTA Not Reportable 12/13/16 11:14 Large Platelets Not Reportable 12/13/16 11:14 Giant Platelets Not Reportable 12/13/16 11:14 Platelet Satelliting Not Reportable 12/13/16 11:14 Plt Morphology Comment Not Reportable 12/13/16 11:14 RBC Morphology Normal 12/13/16 11:14 Dimorphic RBCs Not Reportable 12/13/16 11:14 Polychromasia Not Reportable 12/13/16 11:14 Hypochromasia Not Reportable 12/13/16 11:14 Poikilocytosis Not Reportable 12/13/16 11:14 Anisocytosis Not Reportable 12/13/16 11:14 Microcytosis Not Reportable 12/13/16 11:14 Macrocytosis Not Reportable 12/13/16 11:14 Spherocytes Not Reportable 12/13/16 11:14 Pappenheimer Bodies Not Reportable 12/13/16 11:14 Sickle Cells Not Reportable 12/13/16 11:14 Target Cells Not Reportable 12/13/16 11:14 Tear Drop Cells Not Reportable 12/13/16 11:14 Ovalocytes Not Reportable 12/13/16 11:14 Helmet Cells Not Reportable 12/13/16 11:14 Gatica[place] Bodies Not Reportable 12/13/16 11:14 [place] Rings Not Reportable 12/13/16 11:14 Roberto Cells Not Reportable 12/13/16 11:14 Bite Cells Not Reportable 12/13/16 11:14 Crenated Cell Not Reportable 12/13/16 11:14 Elliptocytes Not Reportable 12/13/16 11:14 Acanthocytes (Spur) Not Reportable 12/13/16 11:14 Rouleaux Not Reportable 12/13/16 11:14 Hemoglobin C Crystals Not Reportable 12/13/16 11:14 Schistocytes Not Reportable 12/13/16 11:14 Malaria parasites Not Reportable 12/13/16 11:14 Epifanio Bodies Not Reportable 12/13/16 11:14 Hem Pathologist Commnt No 12/13/16 11:14 POC ABG pH 7.451 (7.35-7.45) H 12/13/16 21:15 POC ABG pCO2 30.7 (35-45) L 12/13/16 21:15 POC ABG pO2 72 (80-105) L 12/13/16 21:15 POC ABG HCO3 21.4 12/13/16 21:15 POC ABG Total CO2 22 12/13/16 21:15 POC ABG O2 Sat 95 12/13/16 21:15 POC ABG Base Excess -3 12/13/16 21:15 FiO2 21 % 12/13/16 21:15 Sodium 136 mmol/L (137-145) L 12/14/16 08:55 Potassium 3.3 mmol/L (3.6-5.0) L 12/14/16 08:55 Chloride 98.9 mmol/L (98-107) 12/14/16 08:55 Carbon Dioxide 23 mmol/L (22-30) 12/14/16 08:55 Anion Gap 17 mmol/L 12/14/16 08:55 BUN 16 mg/dL (9-20) 12/14/16 08:55 Creatinine 0.9 mg/dL (0.8-1.5) 12/14/16 08:55 Estimated GFR > 60 ml/min 12/14/16 08:55 BUN/Creatinine Ratio 17.77 % 12/14/16 08:55 Glucose 127 mg/dL (75-100) H 12/14/16 08:55 Lactic Acid 2.00 mmol/L (0.7-2.0) 12/14/16 02:22 Calcium 8.2 mg/dL (8.4-10.2) L 12/14/16 08:55 Troponin T < 0.010 ng/mL (0.00-0.029) 12/13/16 11:14 C-Reactive Protein 28.90 mg/dL (0.00-1.30) H 12/13/16 19:34 NT-Pro-B Natriuret Pep 1008 pg/mL (0-900) H 12/13/16 12:16 Blood Type AB NEGATIVE 12/13/16 19:55 Antibody Screen TNR 12/13/16 19:55 TAE Antibody Screen Negative 12/13/16 19:55 WBC trending down
[2016-12-14] MEDS: LOVENOX SUB-Q SCH (22:00)
[2016-12-15 06:25] LABS: Basophils % (Auto) 0.4 % (0.0-1.8); Eosinophils % (Auto) 1.7 % (0.0-4.3); Hematocrit 31.9 % (35.5-45.6); Hemoglobin 10.5 gm/dl (11.8-15.2); Mean Corpuscular HGB Conc 33 % (32-34); Mean Corpuscular Hemoglobin 30 pg (28-32); Mean Corpuscular Volume 90 fl (84-94); Platelet Count 186 K/mm3 (140-440); Red Blood Count 3.55 M/mm3 (3.65-5.03); Red Cell Distribution Width 14.9 % (13.2-15.2); White Blood Count 7.4 K/mm3 (4.5-11.0)
[2016-12-15] MEDS: ZOSYN/NS 4.5GM/100ML 4.5 GM/100 ML VIAL IV SCH ×3 (06:41→22:06)
[2016-12-15 06:43] LABS: Anion Gap 16 mmol/L; Blood Urea Nitrogen 14 mg/dL (9-20); Calcium 8.6 mg/dL (8.4-10.2); Carbon Dioxide 26 mmol/L (22-30); Chloride 99.6 mmol/L (98-107); Glucose 109 mg/dL (75-100); Potassium 3.7 mmol/L (3.6-5.0); Sodium 138 mmol/L (137-145)
--- NOTE | 2016-12-15 08:37 | XRay Report ---
AP CHEST: HISTORY: Followup pneumonia Lingular pneumonia is unchanged since 12/13/16. The right lung remains clear. Heart size is borderline. No pleural effusion or pneumothorax. IMPRESSION: No significant change is detected in the lingular pneumonia.
[2016-12-15] MEDS: LEVAQUIN 750MG/150ML 750 MG/150 ML BAG IV SCH (10:22)
[2016-12-15] MEDS: HCTZ PO SCH (10:23)
[2016-12-15] MEDS: DIOVAN PO SCH (10:23)
[2016-12-15] MEDS: DUONEB *Not for PRN Use IH SCH ×4 (10:36→20:28)
--- NOTE | 2016-12-15 17:22 | Progress Note ---
Assessment and Plan Assessment and plan: Sepsis - Resolving, WBC is trending down, no fever Left lower lobe pneumonia Sleep apnea Morbid obesity Hypertension Hyperlipidemia Hypokalemia; repleted - Patient is being treated according to sepsis protocol with IV Levaquin and Zosyn -Breathing treatment, DuoNeb, oxygen support -Continue appropriate home medications -Continue CPAP DVT prophylaxis - Subcutaneous Heparin Disposition - possible D/C tomorrow. History Interval history: Patient was seen and evaluated this morning, patient states his breathing is getting better, no fever overnight. He has left lower pleuritic chest pain. Hospitalist Physical - Physical exam Narrative exam: Not in cardiopulmonary distress. The patient is a morbidly obese. Vital signs as documented. Head exam is unremarkable. No scleral icterus . Neck is without jugular venous distension, thyromegaly, or carotid bruits. Lungs rales on the left lower chest. Cardiac exam reveals regular rate and Rhythm. First and second heart sounds normal. No murmurs, rubs or gallops. Abdominal exam reveals a morbidly obese abdomen umbilical hernia. Extremities are nonedematous and both femoral and pedal pulses are normal. MARKETING OUTREACH COORDINATOR: Alert and oriented 3. No focal weakness. - Constitutional Vitals: Temp Pulse Resp BP Pulse Ox 98.4 F 94 H 18 140/78 96 12/15/16 12:00 12/15/16 12:00 12/15/16 12:00 12/15/16 12:00 12/15/16 12:00 Results - Labs CBC & Chem 7: 12/15/16 06:01 12/15/16 06:01 Labs: Laboratory Last Values WBC 7.4 K/mm3 (4.5-11.0) 12/15/16 06:01 RBC 3.55 M/mm3 (3.65-5.03) L 12/15/16 06:01 Hgb 10.5 gm/dl (11.8-15.2) L 12/15/16 06:01 Hct 31.9 % (35.5-45.6) L 12/15/16 06:01 MCV 90 fl (84-94) 12/15/16 06:01 MCH 30 pg (28-32) 12/15/16 06:01 MCHC 33 % (32-34) 12/15/16 06:01 RDW 14.9 % (13.2-15.2) 12/15/16 06:01 Plt Count 186 K/mm3 (140-440) 12/15/16 06:01 Lymph % (Auto) 11.5 % (13.4-35.0) L 12/15/16 06:01 [place] % (Auto) 9.5 % (0.0-7.3) H 12/15/16 06:01 Eos % (Auto) 1.7 % (0.0-4.3) 12/15/16 06:01 Baso % (Auto) 0.4 % (0.0-1.8) 12/15/16 06:01 Lymph # 0.8 K/mm3 (1.2-5.4) L 12/15/16 06:01 [place] # 0.7 K/mm3 (0.0-0.8) 12/15/16 06:01 Eos # 0.1 K/mm3 (0.0-0.4) 12/15/16 06:01 Baso # 0.0 K/mm3 (0.0-0.1) 12/15/16 06:01 Add Manual Diff Complete 12/13/16 11:14 Total Counted 100 12/13/16 11:14 Seg Neutrophils % 76.9 % (40.0-70.0) H 12/15/16 06:01 Seg Neuts % (Manual) 95.0 % (40.0-70.0) H 12/13/16 11:14 Band Neutrophils % 1.0 % 12/13/16 11:14 Lymphocytes % (Manual) 0 % (13.4-35.0) L 12/13/16 11:14 Reactive Lymphs % (Man) 1.0 % 12/13/16 11:14 Monocytes % (Manual) 3.0 % (0.0-7.3) 12/13/16 11:14 Eosinophils % (Manual) 0 % (0.0-4.3) 12/13/16 11:14 Basophils % (Manual) 0 % (0.0-1.8) 12/13/16 11:14 Metamyelocytes % 0 % 12/13/16 11:14 Myelocytes % 0 % 12/13/16 11:14 Promyelocytes % 0 % 12/13/16 11:14 Blast Cells % 0 % 12/13/16 11:14 Nucleated RBC % Not Reportable 12/13/16 11:14 Seg Neutrophils # 5.7 K/mm3 (1.8-7.7) 12/15/16 06:01 Seg Neutrophils # Man 22.4 K/mm3 (1.8-7.7) H 12/13/16 11:14 Band Neutrophils # 0.2 K/mm3 12/13/16 11:14 Lymphocytes # (Manual) 0.0 K/mm3 (1.2-5.4) L 12/13/16 11:14 Abs React Lymphs (Man) 0.2 K/mm3 12/13/16 11:14 Monocytes # (Manual) 0.7 K/mm3 (0.0-0.8) 12/13/16 11:14 Eosinophils # (Manual) 0.0 K/mm3 (0.0-0.4) 12/13/16 11:14 Basophils # (Manual) 0.0 K/mm3 (0.0-0.1) 12/13/16 11:14 Metamyelocytes # 0.0 K/mm3 12/13/16 11:14 Myelocytes # 0.0 K/mm3 12/13/16 11:14 Promyelocytes # 0.0 K/mm3 12/13/16 11:14 Blast Cells # 0.0 K/mm3 12/13/16 11:14 WBC Morphology Not Reportable 12/13/16 11:14 Hypersegmented Neuts Not Reportable 12/13/16 11:14 Hyposegmented Neuts Not Reportable 12/13/16 11:14 Hypogranular Neuts Not Reportable 12/13/16 11:14 Smudge Cells Not Reportable 12/13/16 11:14 Toxic Granulation Not Reportable 12/13/16 11:14 Toxic Vacuolation Not Reportable 12/13/16 11:14 Dohle Bodies Not Reportable 12/13/16 11:14 Pelger-Huet Anomaly Not Reportable 12/13/16 11:14 Suzie Rods Not Reportable 12/13/16 11:14 Platelet Estimate Consistent w auto 12/13/16 11:14 Clumped Platelets Not Reportable 12/13/16 11:14 Plt Clumps, EDTA Not Reportable 12/13/16 11:14 Large Platelets Not Reportable 12/13/16 11:14 Giant Platelets Not Reportable 12/13/16 11:14 Platelet Satelliting Not Reportable 12/13/16 11:14 Plt Morphology Comment Not Reportable 12/13/16 11:14 RBC Morphology Normal 12/13/16 11:14 Dimorphic RBCs Not Reportable 12/13/16 11:14 Polychromasia Not Reportable 12/13/16 11:14 Hypochromasia Not Reportable 12/13/16 11:14 Poikilocytosis Not Reportable 12/13/16 11:14 Anisocytosis Not Reportable 12/13/16 11:14 Microcytosis Not Reportable 12/13/16 11:14 Macrocytosis Not Reportable 12/13/16 11:14 Spherocytes Not Reportable 12/13/16 11:14 Pappenheimer Bodies Not Reportable 12/13/16 11:14 Sickle Cells Not Reportable 12/13/16 11:14 Target Cells Not Reportable 12/13/16 11:14 Tear Drop Cells Not Reportable 12/13/16 11:14 Ovalocytes Not Reportable 12/13/16 11:14 Helmet Cells Not Reportable 12/13/16 11:14 [place]a-[place] Bodies Not Reportable 12/13/16 11:14 [place] Rings Not Reportable 12/13/16 11:14 [place] Cells Not Reportable 12/13/16 11:14 Bite Cells Not Reportable 12/13/16 11:14 Crenated Cell Not Reportable 12/13/16 11:14 Elliptocytes Not Reportable 12/13/16 11:14 Acanthocytes (Spur) Not Reportable 12/13/16 11:14 Rouleaux Not Reportable 12/13/16 11:14 Hemoglobin C Crystals Not Reportable 12/13/16 11:14 Schistocytes Not Reportable 12/13/16 11:14 Malaria parasites Not Reportable 12/13/16 11:14 Epifanio Bodies Not Reportable 12/13/16 11:14 Hem Pathologist Commnt No 12/13/16 11:14 POC ABG pH 7.451 (7.35-7.45) H 12/13/16 21:15 POC ABG pCO2 30.7 (35-45) L 12/13/16 21:15 POC ABG pO2 72 (80-105) L 12/13/16 21:15 POC ABG HCO3 21.4 12/13/16 21:15 POC ABG Total CO2 22 12/13/16 21:15 POC ABG O2 Sat 95 12/13/16 21:15 POC ABG Base Excess -3 12/13/16 21:15 FiO2 21 % 12/13/16 21:15 Sodium 138 mmol/L (137-145) 12/15/16 06:01 Potassium 3.7 mmol/L (3.6-5.0) 12/15/16 06:01 Chloride 99.6 mmol/L (98-107) 12/15/16 06:01 Carbon Dioxide 26 mmol/L (22-30) 12/15/16 06:01 Anion Gap 16 mmol/L 12/15/16 06:01 BUN 14 mg/dL (9-20) 12/15/16 06:01 Creatinine 0.8 mg/dL (0.8-1.5) 12/15/16 06:01 Estimated GFR > 60 ml/min 12/15/16 06:01 BUN/Creatinine Ratio 17.50 % 12/15/16 06:01 Glucose 109 mg/dL (75-100) H 12/15/16 06:01 Lactic Acid 2.00 mmol/L (0.7-2.0) 12/14/16 02:22 Calcium 8.6 mg/dL (8.4-10.2) 12/15/16 06:01 Troponin T < 0.010 ng/mL (0.00-0.029) 12/13/16 11:14 C-Reactive Protein 28.90 mg/dL (0.00-1.30) H 12/13/16 19:34 NT-Pro-B Natriuret Pep 1008 pg/mL (0-900) H 12/13/16 12:16 Blood Type AB NEGATIVE 12/13/16 19:55 Antibody Screen TNR 12/13/16 19:55 TAE Antibody Screen Negative 12/13/16 19:55
[2016-12-15] MEDS: LOVENOX SUB-Q SCH (22:00)
[2016-12-16] MEDS ORDERED: MOTRIN PO PRN (00:28)
[2016-12-16] MEDS: ZOSYN/NS 4.5GM/100ML 4.5 GM/100 ML VIAL IV SCH (05:49)
[2016-12-16 06:17] LABS: Anion Gap 20 mmol/L; BUN/Creatinine Ratio 15.55; Blood Urea Nitrogen 14 mg/dL (9-20); Calcium 8.3 mg/dL (8.4-10.2); Carbon Dioxide 24 mmol/L (22-30); Chloride 100.9 mmol/L (98-107); Glucose 101 mg/dL (75-100); Potassium 3.9 mmol/L (3.6-5.0); Sodium 141 mmol/L (137-145)
[2016-12-16 06:18] LABS: Hematocrit 32.8 % (35.5-45.6); Hemoglobin 10.7 gm/dl (11.8-15.2); Mean Corpuscular HGB Conc 33 % (32-34); Mean Corpuscular Hemoglobin 30 pg (28-32); Mean Corpuscular Volume 91 fl (84-94); Platelet Count 185 K/mm3 (140-440); Red Blood Count 3.59 M/mm3 (3.65-5.03); Red Cell Distribution Width 15.1 % (13.2-15.2); White Blood Count 7.5 K/mm3 (4.5-11.0)
[2016-12-16] MEDS: DUONEB *Not for PRN Use IH SCH (08:02)
--- NOTE | 2016-12-16 08:32 | Discharge Summary ---
Providers - Providers Date of Admission: 12/13/16 19:32 Date of discharge: 12/16/16 Attending physician: AALIYAH COFFMAN MD Primary care physician: [employer] Hospitalization Reason for admission: acute hypoxic respiratory failure, left lower lobe pneumonia, SePSIS Condition: Stable Pertinent studies: CXR: [facility] Hospital course: 56 year old male with medical history significant for morbid obesity, hypertension, hyperlipidemia presented to the emergency department complaining of left-sided pleuritic chest pain and shortness of breath that started yesterday. Patient said pain is on the left lower anterior chest, sharp, worsened with deep inspiration, with no radiation, no aggravating factor. Patient stated he had which is productive of greenish to reddish sputum that started yesterday associated with fever but no chills. Patient was admitted for acute respiratory failure, pneumonia, sepsis and was treated according to sepsis protocol and patient showed improvement and was discharged with PO antibiotics. patient was hemodynamically stable at the time of discharge. Patients medications were reviewed and and updated at the time of DC. Patient advised to have followup with his PCP. Disposition: DC-01 TO HOME OR SELFCARE Time spent for discharge: 31 minutes - Discharge Diagnoses (1) Left lower lobe pneumonia Status: Acute Qualifiers: Pneumonia type: due to unspecified organism Aspiration pneumonia type: A Qualified Code(s): J18.1 - Lobar pneumonia, unspecified organism (2) Morbid obesity Status: Acute (3) Sepsis Status: Acute Qualifiers: Sepsis type: sepsis due to unspecified organism Qualified Code(s): A41.9 - Sepsis, unspecified organism (4) Cellulitis of right leg Status: Acute (5) Chronic ulcer of leg Status: Acute Qualifiers: Laterality: right Non-pressure ulcer stage: unspecified non-pressure ulcer stage Qualified Code(s): L97.919 - Non-pressure chronic ulcer of unspecified part of right lower leg with unspecified severity (6) Physical deconditioning Status: Acute Core Measure Documentation - Palliative Care Palliative Care/ Comfort Measures: Not Applicable - Core Measures Any of the following diagnoses?: none Exam - Physical Exam Narrative exam: Not in cardiopulmonary distress. The patient is a morbidly obese. Vital signs as documented. Head exam is unremarkable. No scleral icterus . Neck is without jugular venous distension, thyromegaly, or carotid bruits. Lungs rales on the left lower chest. Cardiac exam reveals regular rate and Rhythm. First and second heart sounds normal. No murmurs, rubs or gallops. Abdominal exam reveals a morbidly obese abdomen umbilical hernia. Extremities are nonedematous and both femoral and pedal pulses are normal. [employer]: Alert and oriented 3. No focal weakness. - Constitutional Vitals: Temp Pulse Resp BP Pulse Ox 98.5 F 75 20 136/65 95 12/16/16 07:40 12/16/16 07:40 12/16/16 07:40 12/16/16 07:40 12/16/16 07:40 Plan Activity: no restrictions Weight Bearing Status: Full Weight Bearing Diet: low fat, low cholesterol, low salt Follow up with: PRIMARY CARE,MD [Primary Care Provider] - 3-5 Days Prescriptions: AtorvaSTATin [Lipitor] 20 mg PO DAILY #30 tablet guaiFENesin DM [Robitussin Dm] 10 ml PO Q6HR #1 bottle Levofloxacin [Levaquin] 750 mg PO QDAY #7 tablet oxyCODONE /ACETAMINOPHEN [Percocet 5/325 mg] 2 tab PO Q6HR PRN #20 tablet PRN Reason: Pain
[2016-12-16] MEDS: HCTZ PO SCH (10:00)
[2016-12-16] MEDS: DIOVAN PO SCH (10:00)
[2016-12-16] MEDS: LEVAQUIN 750MG/150ML 750 MG/150 ML BAG IV SCH (10:00)
[2016-12-16 12:28] VITALS: BP 180/86
== END 2016-12-16 15:57 | disposition home or self-care (01) | DRG 871 ==
LOC: ED 10:37 → 4A 19:32
PROVIDERS: ADMIT Internal Medicine; ATTEND Internal Medicine
PROC: 4A033R1 Measurement of Arterial Saturation, Peripheral, Percutaneous Approach (ICD-10-PCS; principal; 2016-12-13)
DX: A41.9 Sepsis, unspecified organism (principal); J18.1 Lobar pneumonia, unspecified organism; E66.01 Morbid (severe) obesity due to excess calories; G47.33 Obstructive sleep apnea (adult) (pediatric); E78.5 Hyperlipidemia, unspecified; I10 Essential (primary) hypertension; M19.90 Unspecified osteoarthritis, unspecified site; E87.6 Hypokalemia; L03.115 Cellulitis of right lower limb; L97.919 Non-pressure chronic ulcer of unspecified part of right lower leg with unspecified severity; Z68.44 Body mass index [BMI] 60.0-69.9, adult; Z88.6 Allergy status to analgesic agent
CPT/HCPCS: 36415; 36600; 71010; 71020; 80048; 82140; 82803; 83880; 84484; 85007; 85025; 86140; 86850; 86900; 86901; 87040; 93005; 93010; 94640; 96361; 96365; 96366; A9270-GY; J1650; J1956; J2543; J7050